=== PATIENT | female | born 1960 | race Caucasian/White ===

== ENCOUNTER 2017-04-15 10:19 | Emergency (ER) | payer OTHER ==
[2017-04-15] MEDS ORDERED: NORMAL SALINE 1,000 ML IV ONE (10:50)
[2017-04-15 11:08] LABS: Hematocrit 25.6 % (37.0-47.0); Hemoglobin 9.3 gm/dL (12.5-16.0); Mean Cell Volume 111.8 fl (78-100); Mean Corpuscular Hemoglobin 40.6 pg (27-31); Mean Corpuscular Hgb Conc 36.3 g/dl (32-36); Mean Platelet Volume 11.8 fl (6.0-9.5); Platelet Count 204 K/mm3 (150-450); Red Blood Count 2.29 M/mm3 (4.2-5.4); Red Cell Distribution Width 17.3 % (11.5-14.0); White Blood Count 26.1 K/mm3 (4.0-10.5)
[2017-04-15 11:09] LABS: Venous Blood Gas HCO3 18.6 mmol/L (22.0-29.0); Venous Blood Gas pH 7.1 (7.32-7.43)
[2017-04-15 11:13] LABS: Total Cells Counted 100
--- NOTE | 2017-04-15 11:21 | ERNOTE ---
Medical Problem HPI - General Chief Complaint: General Assessment Time Seen by Provider: 04/15/17 10:19 Source: family Exam Limitations: clinical condition - Immun/Allergies/Home Medications Immunizations: IMMUNIZATION HX Immunizations Up to Date No Immunizations Comment unknown Allergies/Adverse Reactions: Allergies No Known Allergies Allergy (Unverified 03/29/14 17:20) Home Medications: HOME MEDICATIONS Acetaminophen [Tylenol] 650 mg PO Q6H PRN 03/29/14 [Last Taken Unknown] Alprazolam [Alprazolam Odt] 0.25 mg PO TID PRN 03/29/14 [Last Taken Unknown] Ascorbic Acid [Vitamin C] 1,000 mg PO DAILY 03/29/14 [Last Taken Unknown] Aspirin 325 mg PO DAILY 03/29/14 [Last Taken Unknown] Lisinopril/Hydrochlorothiazide [Zestoretic 20-12.5 mg Tablet] 1 each PO DAILY [Last Taken Unknown] Melatonin/Pyridoxine HCl (B6) [Melatonin 3 mg Tablet] 1 each PO DAILY 03/29/14 [ Last Taken Unknown] Metoprolol Succinate [Toprol Xl] 50 mg PO DAILY 03/29/14 [Last Taken Unknown] Multivitamin [Multi Vitamin Daily] 1 each PO DAILY 03/29/14 [Last Taken Unknown] Omeprazole [Prilosec] 20 mg PO DAILY 03/29/14 [Last Taken Unknown] Rosuvastatin Calcium [Crestor] 20 mg PO DAILY 03/29/14 [Last Taken Unknown] Anay's Wort 300 mg PO BID 03/29/14 [Last Taken Unknown] amLODIPine BESYLATE [Norvasc] 5 mg PO DAILY 03/29/14 [Last Taken Unknown] Ibuprofen [Motrin] 400 mg PO Q6H PRN 04/19/14 [Last Taken Unknown] oxyCODONE HCL/ACETAMINOPHEN [Percocet 5 MG/325 MG] 1 tab PO Q6H PRN #0 tablet [Last Taken Unknown] - History of Present History Narrative: Mother reports that patient is living on her own. Two days ago parents noticed that she was very yellow but refused to get medical attention. She was also getting progressively weaker and kept falling, so there took her home with them. This morning they found the patient minimally responsive and called EMS. On their arrival O2 sat was in the 70's and she was put on a non rebreather an transferred to the ER Review of Systems - Narrative Narrative: patient unable to give history - Patient's Past Medical History Patient History - Medical: Other Patient History - Cardiac/Respiratory: CVA/Stroke - post , Hypertension Patient History - Cancer: No Hx of Cancer Patient History - Surgical Procedures: Other - Family History Mother Family History - Medical: Diabetes Type 2 Family History - Cardiac/Respiratory: Hypertension, Hyperlipidemia Family History - Cancer: No pertinent family hx Father Family History - Cardiac/Respiratory: CVA/Stroke, Hypertension, Hyperlipidemia Family History - Cancer: No pertinent family hx - Social History Living Situations: alone Abuse History: No History of abuse Psych History: Hx of Anxiety Smoking Status: Current every day smoker Have you smoked in the past 12 months: Yes Do you dip or chew tobacco: No Alcohol Use: heavy Drug Use: none - Immunizations Immunizations Up to Date: No Physical Exam - Physical Exam General Appearance: Present: lethargic - poor respiratory effort Head Exam: Present: no evidence of injury Eye Exam: Scleral icterus: bilateral Ears, Nose, Throat: Present: normal pharynx Respiratory: Present: lungs clear Cardiovascular/Chest: Present: regular rate, rhythm, no murmur Gastrointestinal/Abdominal: Present: nontender, distended, other - echymosis left flank. Absent: guarding, rebound Extremity Exam: Present: pedal edema - trace Neurological Exam: Present: other - minimally responsive to pain Skin Exam: Present: warm/dry, jaundice - profound ED Progress - Results and Orders Patient's Lab Results:: I have reviewed the patient's lab results. - Vital Signs Patient's Vital Signs:: I have reviewed the patient's vital signs. Vital Signs: Vital Signs 04/15/17 04/15/17 04/15/17 10:37 10:45 11:06 Temperature 35.2 C L 34.9 C L Pulse Rate 71 65 Respiratory 18 17 Rate Blood Pressure 100/54 110/86 O2 Sat by Pulse 15 L 91 Oximetry - EKG EKG: NSR, other - TWI V3/4, EKG read: Interp. by me - X-Ray X-Ray #1 X-Ray: chest - increased density left lung lobe Interpretation: Reviewed by me X-Ray #2 X-Ray: abdomen - no acute findings Interpretation: Reviewed by me X-Ray #3 X-Ray: chest - tube in right main bronchus Interpretation: Reviewed by me X-Ray #4 X-Ray: chest - tube in good positition Interpretation: Reviewed by me - Progress/Reassessment Chief Complaint: General Assessment Progress Note-Subjective: 04/15/17 12:08 BP falling, fluids infusing,plan was to start levophed, only dopamine immediately available in the ER improved BP prior to intubation 04/15/17 12:08 call to [facility] discussed with ER triage right main stem intubation on CXR, ETtube pulled back 3cm improved left side aeration and tube position on repeat CXR 04/15/17 12:23 discussed with transfer center 04/15/17 12:27 discussed with Stacy Willoughby ([employer]), accepted patient for transfer, no additional orders Procedures Date and Time: 04/15/17 12:05 Intubation Method: orotracheal Tube Size (cm): 7.0 Medications: Succinylcholine - 100mg Breath Sounds after Intubation: right greater than left Intubation Complications: no complications Post Intubation Xray: Yes Complications: Pt namtia procedure well Departure Clinical Impression: Hyponatremia Sepsis Qualifiers: Sepsis type: sepsis due to unspecified organism Qualified Code(s): A41.9 - Sepsis, unspecified organism Liver failure Qualifiers: Liver failure chronicity: acute Hepatic coma status: without hepatic coma Qualified Code(s): K72.00 - Acute and subacute hepatic failure without coma Respiratory failure Qualifiers: Chronicity: acute Respiratory failure complication: hypoxia and hypercapnia Qualified Code(s): J96.01 - Acute respiratory failure with hypoxia; J96.02 - Acute respiratory failure with hypercapnia; J96.02 - Acute respiratory failure with hypercapnia; J96.02 - Acute respiratory failure with hypercapnia Anemia Qualifiers: Anemia type: unspecified type Qualified Code(s): D64.9 - Anemia, unspecified Renal failure Qualifiers: Renal failure chronicity: acute Acute renal failure type: unspecified Qualified Code(s): N17.9 - Acute kidney failure, unspecified - Departure Disposition: [facility] Condition: Fair - Critical Care Critical Care: 30 minutes
[2017-04-15] MEDS ORDERED: NORMAL SALINE 1,000 ML IV PRN (11:26)
[2017-04-15 11:27] LABS: Prothrombin Time (Patient) 23.7 Seconds (9.0-11.0)
[2017-04-15 11:30] LABS: Urine Bilirubin 6 mg/dl (NEGATIVE); Urine Blood 250 /ul (NEGATIVE); Urine Ketone 15 mg/dL (NEGATIVE); Urine Protein 100 mg/dL (NEGATIVE); Urine Specific Gravity 1.025 SP.GR. (1.005-1.010); Urine Urobilinogen Normal (NORMAL); Urine pH 6.5 pH (5.0-7.0)
[2017-04-15 11:33] LABS: ALT 116 U/L (19-67); AST 431 U/L (0-48); Albumin * 2.1 gm/dl (3.4-5.0); Amylase * 221 U/L (25-115); Anion Gap 27.1 mmol/L (6.8-13.8); BUN/Creatinine Ratio 4.5 (9.0-21.6); Blood Urea Nitrogen 15 mg/dL (3-23); Ca. Corrected For Albumin 9.6 mg/dL (8.4-10.2); Calcium * 8.4 mg/dL (7.9-10.9); Carbon Dioxide 17.5 mmol/L (24-32.6); Chloride 72 mmol/L (97-106); Glucose * 80 mg/dL (70-110); Potassium 3.6 mmol/L (3.4-4.6); Total Protein 4.6 gm/dL (6.2-8.2)
[2017-04-15] MEDS ORDERED: NOREPINEPHRINE BITARTRATE 4 MG in DEXTROSE 5 % IN WATER 496 ML IV PRN ×2 (11:34)
[2017-04-15 11:40] LABS: Urine Appearance Turbid; Urine Bacteria 4+; Urine Color Brown; Urine Nitrite Positive (NEGATIVE); Urine RBC 0-5 /hpf (0-5)
[2017-04-15 11:42] LABS: Atypical (Reactive) Lymph 3 % (0-2); Band 5 % (0-2.0); Howell-Jolly Bodies 1+; Immature Granulocyte 3 (0-1); Lymphocyte 20 % (20-51); Macrocytosis 3+; Monocyte 1 % (0-9); Neutrophil 68 % (42-75); Neutrophil # 17.7 K/mm3 (1.3-6.0); Target Cells 3+
[2017-04-15 11:43] LABS: Dohle Bodies 2+; INR 2.35 INR (0.90-1.10); Toxic Granulation 1+
[2017-04-15 11:51] LABS: Sodium 113 mmol/L (132-142)
[2017-04-15 11:59] LABS: Cocaine Ur Negative (NEGATIVE); Urine Barbiturate Negative (NEGATIVE); Urine Benzodiazepines Negative (NEGATIVE); Urine Opiates Negative (NEGATIVE); Urine PCP Negative (NEGATIVE); Urine THC Negative (NEGATIVE)
[2017-04-15 12:06] VITALS: BP 76/23
[2017-04-15 12:06] LABS: Alkaline Phosphatase * 1262 U/L (50-170)
[2017-04-15 12:08] LABS: Bilirubin, Total 42.7 mg/dL (0.0-1.1)
[2017-04-15 12:09] LABS: Lipase 7950 U/L (73-393)
== END 2017-04-15 12:40 | disposition short-term general hospital (02) ==
LOC: ER 10:19
PROC: 0T9B70Z Drainage of Bladder with Drainage Device, Via Natural or Artificial Opening (ICD-10-PCS; principal; 2017-04-15)
PROC: 0BH17EZ Insertion of Endotracheal Airway into Trachea, Via Natural or Artificial Opening (ICD-10-PCS; 2017-04-15)
DX: E87.1 Hypo-osmolality and hyponatremia (principal); A41.9 Sepsis, unspecified organism; K72.00 Acute and subacute hepatic failure without coma; J96.01 Acute respiratory failure with hypoxia; J96.02 Acute respiratory failure with hypercapnia; D64.9 Anemia, unspecified; N17.9 Acute kidney failure, unspecified
CPT/HCPCS: 31500; 36416; 51702; 71010; 74000; 80053; 80307; 81001; 82140; 82150; 82803; 83605; 83690; 85025; 85610; 85730; 87040; 87077; 87086; 87186; 93005; 96365; 96367; 99291; G0481